=== PATIENT | female | born 1965 | race Caucasian/White ===

== ENCOUNTER 2018-05-23 12:50 | Emergency (ER) | payer OTHER ==
[~2018-05-23] VITALS: Ht 162.6 cm; Wt 74.2 kg
[2018-05-23 12:53] VITALS: BP 128/68
--- NOTE | 2018-05-23 13:15 | NUR ---
TASK RN: Pt states, "On Friday I was hit by a snowboarder from behind while I was skiing. I was wearing a helmet. I don't know if I lost conciousness. I had ringing in my ears for 5 minutes straight it felt like right afterwards. I tried to sleep it off. The headaches seem to continue. I didn't get any medical attention when it happened." NADN. Pt has unlaobred respirations with even chest rise and fall. Pt is AOX4, speech is clear, all extremities are 5/5 in strength, eyes are PERRLA at 3mm. Pt denies cp, n/v/d, sob, or syncope.
[2018-05-23] MEDS ORDERED: KETOROLAC 30 MG/1 ML IM ONE (13:30)
[2018-05-23] MEDS ORDERED: ACETAMINOPHEN 500 MG TABLET PO ONE (13:30)
[2018-05-23] MEDS ORDERED: ONDANSETRON ODT 4 MG PO ONE (13:30)
[2018-05-23] MEDS ORDERED: ACETAMINOPHEN 500 MG TABLET ONE (13:32)
[2018-05-23] MEDS ORDERED: ONDANSETRON ODT 4 MG ONE (13:32)
[2018-05-23] MEDS ORDERED: KETOROLAC 30 MG/1 ML ONE (13:32)
[2018-05-23 13:46] LABS: ALBUMIN 3.8 g/dL (3.4-5.0); ANION GAP 5 mmol/L (5-15); CALCIUM 8.8 mg/dL (8.5-10.1); CHLORIDE 110 mmol/L (98-107); CREATININE 0.86 mg/dL (0.55-1.02)
[2018-05-23 14:03] LABS: BASOPHILS # (AUTO) 0.02 x10^3/uL (0-0.1); BASOPHILS % (AUTO) 1 % (0-1); EOSINOPHILS # (AUTO) 0.04 x10^3/uL (0-0.4); EOSINOPHILS % (AUTO) 1 % (1-7); LYMPHOCYTES # (AUTO) 1.22 x10^3/uL (1-3.4); LYMPHOCYTES % (AUTO) 34 % (22-44); MD NO; MEAN CORPUSCULAR HEMOGLOBIN 34.3 pg (27.0-34.8); MEAN CORPUSCULAR HGB CONC 34.8 g/dL (32.4-35.8); MEAN CORPUSCULAR VOLUME 98.5 fL (80-100); MONOCYTES # (AUTO) 0.31 x10^3/uL (0.2-0.8); MONOCYTES % (AUTO) 9 % (2-9); NEUTROPHILS % (AUTO) 56 % (42-75); PLATELET COUNT 264 x10^3/uL (130-400); RED BLOOD COUNT 3.53 x10^6/uL (3.82-5.3)
--- NOTE | 2018-05-23 15:33 | NUR ---
Patient/Caregiver given discharge instructions and they have confirmed that they understand the instructions. Patient ambulatory with steady gait.
== END 2018-05-23 15:35 | disposition home or self-care (01) ==
LOC: ED 13:29
DX: S06.0X0A Concussion without loss of consciousness, initial encounter (principal); W01.0XXA Fall on same level from slipping, tripping and stumbling without subsequent striking against object, initial encounter; Y93.89 Activity, other specified; Y92.89 Other specified places as the place of occurrence of the external cause; Y99.8 Other external cause status
CPT/HCPCS: 36415; 80048; 82040; 85025; 96372; 99283; J1885; Q0162